=== PATIENT | female | born 2000 | race Caucasian/White ===

== ENCOUNTER 2020-06-18 10:09 | Observation (INO) | payer MEDICAID ==
[~2020-06-18] VITALS: Ht 170.2 cm; Wt 73.5 kg
[2020-06-18] MEDS ORDERED: PREN1TAB78 MT (12:14)
[2020-06-18] MEDS ORDERED: CHOL200026 (12:14)
== END 2020-06-18 12:10 | disposition home or self-care (01) ==
LOC: 8 EST LDRP 10:09
PROVIDERS: ADMIT Obstetrics & Gynecology; ATTEND Specialist
DX: O36.8930 Maternal care for other specified fetal problems, third trimester, not applicable or unspecified (principal); Z3A.30 30 weeks gestation of pregnancy
CPT/HCPCS: 59025; 76805; 76818; G0378; 99281

== ENCOUNTER 2020-08-06 04:07 | Observation (INO) | payer MEDICAID ==
[~2020-08-06] VITALS: Ht 170.2 cm; Wt 71.2 kg
[~2020-08-06 04:07] MED LIST: CHOL200026; PREN1TAB78 MT
== END 2020-08-06 07:50 | disposition home or self-care (01) ==
LOC: OBSVTOIN 04:07 → 8 EST LDRP 04:07 → INTOOBSV 04:07
PROVIDERS: ADMIT Obstetrics & Gynecology; ATTEND Obstetrics & Gynecology
DX: O46.93 Antepartum hemorrhage, unspecified, third trimester (principal); Z3A.35 35 weeks gestation of pregnancy
CPT/HCPCS: 59025; 76805; 76818; G0378; 99281

== ENCOUNTER 2020-08-07 14:02 | Observation (INO) | payer MEDICAID ==
[~2020-08-07] VITALS: Ht 170.2 cm; Wt 82.6 kg
== END 2020-08-07 16:10 | disposition home or self-care (01) ==
LOC: 8 EST LDRP 14:02
PROVIDERS: ADMIT Obstetrics & Gynecology; ATTEND Obstetrics & Gynecology
DX: Z34.93 Encounter for supervision of normal pregnancy, unspecified, third trimester (principal); Z3A.36 36 weeks gestation of pregnancy
CPT/HCPCS: 59025; 76815; 76818; G0378